=== PATIENT | female | born 1985 | race Two or more races ===

== ENCOUNTER 2022-03-09 22:13 | Inpatient (IN) ==
[2022-03-09 22:51] LABS: BILIRUBIN,URINE NEGATIVE (NEGATIVE); BLOOD/HEMOGLOBIN,URINE NEGATIVE (NEGATIVE); GLUCOSE, URINE NEGATIVE (NEGATIVE); KETONES,URINE NEGATIVE (NEGATIVE); LEUKOCYTE ESTERASE ,URINE NEGATIVE (NEGATIVE); NITRITES,URINE NEGATIVE (NEGATIVE); PROTEIN,URINE 2+ (NEGATIVE); UROBILINOGEN,URINE NORMAL (NORMAL)
[2022-03-09 22:52] VITALS: BMI 32.7
[2022-03-09 22:57] LABS: APPEARANCE,URINE CLEAR (CLEAR); BACTERIA,URINE NEGATIVE /HPF (NEGATIVE); COLOR,URINE PALE YELLOW (YELLOW); RBC,URINE NONE SEEN /HPF (0-3); SQUAMOUS EPITHELIAL CELL,UR RARE /HPF (NEGATIVE)
[2022-03-09 23:04] LABS: AMNISURE ROM TEST NO MEMBRANES RUPTURE (NO RUPTURE)
[2022-03-09] MEDS ORDERED: LR 1,000 ML IV 1,000 ML IV ONE ×2 (23:41→23:44)
[2022-03-10 00:04] LABS: HEMOGLOBIN 10.5 g/dL (12.0-16.0); MEAN CORPUSCULAR VOLUME 86.2 fL (80.0-100.0); WHITE BLOOD COUNT 5.3 X10^3/uL (3.6-10.0)
[2022-03-10 00:07] LABS: BASOPHILS # (AUTO) 0.1 X10^3/uL (0.0-0.1); BASOPHILS % (AUTO) 2.1 % (0.2-1.0); EOSINOPHILS % (AUTO) 0.9 % (0.9-2.9); HEMATOCRIT 29.5 % (36.0-47.0); LYMPHOCYTES # (AUTO) 1.9 X10^3/uL (1.3-2.9); LYMPHOCYTES % (AUTO) 35.7 % (21.0-51.0); MEAN CORPUSCULAR HEMOGLOBIN 30.7 pg (27.0-34.0); MEAN CORPUSCULAR HGB CONC 35.7 g/dL (33.0-35.0); MEAN PLATELET VOLUME 11.5 fL (7.4-11.0); MONOCYTES # (AUTO) 0.4 x10^3/uL (0.3-0.8); MONOCYTES % (AUTO) 7.5 % (0.0-13.0); NEUTROPHILS # (AUTO) 2.8 x10^3/uL (2.2-4.8); NEUTROPHILS % (AUTO) 53.8 % (42.0-75.0); RED BLOOD COUNT 3.43 X10^6/uL (3.5-5.4); RED CELL DISTRIBUTION WIDTH 12.6 % (11.6-16.5)
[2022-03-10 00:12] LABS: ALANINE AMINOTRANSFERASE 14 Units/L (12-78); ALBUMIN 2.4 g/dL (3.4-5.0); ALKALINE PHOSPHATASE 240 Units/L (46-116); ASPARTATE AMINO TRANSFERASE 17 Units/L (15-37); BLOOD UREA NITROGEN 9 mg/dL (7-18); CALCIUM 8.5 mg/dL (8.5-10.1); CARBON DIOXIDE 19.4 mmol/L (21-32); CHLORIDE 105 mmol/L (98-107); COR CA(FOR HYPOALB) 9.8 mg/dL (8.5-10.1); COR NA(FOR HYPERGLY) 140 mmol/L (136-145); CREATININE 0.72 mg/dL (0.55-1.02); SODIUM 138 mmol/L (136-145); TOTAL PROTEIN 6.4 g/dL (6.4-8.2); eGFR NON BLACK RACES > 60 (>60)
[2022-03-10] MEDS ORDERED: PITOCIN IVP ONE (01:04)
[2022-03-10] MEDS ORDERED: STADOL INJ IVP PRN (01:04)
[2022-03-10] MEDS ORDERED: REGLAN INJ 10 MG VIAL IVP PRN ×3 (01:04→10:22)
[2022-03-10] MEDS ORDERED: AMPICILLIN VIAL 2 GRAM 2 G in NS 100 ML IV + SPIKE MINIBAG* 100 ML IV SCH (01:04)
[2022-03-10] MEDS ORDERED: D5 LR + PITOCIN 10 UNITS/L 10 UNITS/1,000 ML BAG IV PRN (01:04)
[2022-03-10] MEDS ORDERED: PITOCIN ONE (01:46)
[2022-03-10] MEDS ORDERED: LR 1,000 ML IV 1,000 ML IV ONE ×2 (01:47→08:19)
[2022-03-10] MEDS ORDERED: BETADINE SOLN ONE (01:47)
[2022-03-10] MEDS ORDERED: D5 1/2 NS 1,000 mL + PITOCIN 20 UNITS/L IV 20 UNITS/1,000 ML BAG IV ONE (01:47)
[2022-03-10] MEDS ORDERED: AMPICILLIN VIAL 2 GRAM ONE (01:47)
[2022-03-10] MEDS ORDERED: NS 100 ML IV 100 ML ONE ×3 (01:48→08:19)
[2022-03-10] MEDS ORDERED: D5 1/2 NS 1,000 ML 1,000 ML IV SCH (02:00)
[2022-03-10] MEDS ORDERED: AMPICILLIN VIAL 1 GRAM ONE (05:00)
[2022-03-10] MEDS ORDERED: SPIKE MINIBAG IV SCH (06:00)
[2022-03-10] MEDS ORDERED: AMPICILLIN IV SCH (06:00)
[2022-03-10] MEDS ORDERED: NS IV SCH (06:00)
[2022-03-10] MEDS ORDERED: ANCEF VIAL 1 GRAM ONE (08:19)
[2022-03-10] MEDS ORDERED: XYLOCAINE 2 % (PLAIN) ONE (08:30)
[2022-03-10] MEDS ORDERED: DILAUDID INJ ONE (08:30)
[2022-03-10] MEDS ORDERED: MARCAINE SPINAL ONE (08:30)
[2022-03-10] MEDS ORDERED: PRECEDEX INJ VIAL IVP ONE (08:30)
[2022-03-10] MEDS ORDERED: ZOFRAN INJ 4 MG VIAL ONE (08:32)
[2022-03-10] MEDS ORDERED: PEPCID 20 MG VIAL ONE (08:34)
[2022-03-10] MEDS ORDERED: EPHEDRINE SULFATE INJ ONE (09:10)
[2022-03-10] MEDS ORDERED: ZOFRAN INJ 4 MG VIAL IVP PRN ×2 (09:44→10:22)
[2022-03-10] MEDS ORDERED: BARHEMSYS INJ IVP PRN (09:44)
[2022-03-10] MEDS ORDERED: DILAUDID INJ IVP PRN (09:44)
[2022-03-10] MEDS ORDERED: BENADRYL INJ 50 MG VIAL IVP PRN ×2 (09:44→10:22)
[2022-03-10] MEDS ORDERED: PHENERGAN INJ 25 MG IM PRN (09:44)
[2022-03-10] MEDS ORDERED: MORPHINE SULFATE INJ 4 MG IVP PRN (10:21)
[2022-03-10] MEDS ORDERED: PERCOCET TAB 5/325 MG PO PRN (10:21)
[2022-03-10] MEDS ORDERED: MOTRIN TAB 800 MG PO PRN (10:21)
[2022-03-10] MEDS ORDERED: NARCAN INJ IVP PRN ×2 (10:22)
[2022-03-10] MEDS: GLUCOPHAGE PO SCH ×2 (12:45→17:28)
[2022-03-10] MEDS: LR 1,000 ML IV 1,000 ML with PITOCIN 20 UNITS IV SCH ×2 (21:25)
[2022-03-11] MEDS: LR 1,000 ML IV 1,000 ML with PITOCIN 20 UNITS IV SCH ×6 (03:33→22:04)
[2022-03-11 05:00] LABS: HEMATOCRIT 24.5 % (36.0-47.0)
[2022-03-11 05:12] LABS: HEMOGLOBIN 8.8 g/dL (12.0-16.0)
[2022-03-11] MEDS: GLUCOPHAGE PO SCH ×2 (06:10→17:21)
[2022-03-11] MEDS ORDERED: NS 100 ML IV 100 ML with VENOFER 400 MG IV NR ×2 (08:54)
[2022-03-11] MEDS: LR 1,000 ML IV 1,000 ML IV SCH ×2 (13:10→16:43)
[2022-03-11] MEDS: PERCOCET TAB 5/325 MG PO PRN ×2 (14:30→21:42)
[2022-03-11] MEDS ORDERED: GLUCOPHAGE ONE (17:16)
[2022-03-11] MEDS: COLACE CAP 100 MG PO PRN (21:41)
[2022-03-12] MEDS: PERCOCET TAB 5/325 MG PO PRN (04:18)
[2022-03-12] MEDS ORDERED: MILK OF MAGNESIA PO PRN (04:32)
[2022-03-12] MEDS: COLACE CAP 100 MG PO PRN (06:10)
[2022-03-12] MEDS ORDERED: GLUCOPHAGE ONE ×2 (07:52→16:27)
[2022-03-12 08:44] LABS: BASOPHILS % (AUTO) 0.3 % (0.2-1.0); EOSINOPHILS # (AUTO) 0.1 x10^3/uL (0.0-0.2); EOSINOPHILS % (AUTO) 1.2 % (0.9-2.9); HEMATOCRIT 22.1 % (36.0-47.0); LYMPHOCYTES # (AUTO) 1.7 X10^3/uL (1.3-2.9); LYMPHOCYTES % (AUTO) 20.4 % (21.0-51.0); MEAN CORPUSCULAR HEMOGLOBIN 31.3 pg (27.0-34.0); MEAN PLATELET VOLUME 9.8 fL (7.4-11.0); MONOCYTES # (AUTO) 0.4 x10^3/uL (0.3-0.8); MONOCYTES % (AUTO) 5.3 % (0.0-13.0); NEUTROPHILS % (AUTO) 72.8 % (42.0-75.0); RED BLOOD COUNT 2.54 X10^6/uL (3.5-5.4); RED CELL DISTRIBUTION WIDTH 12.7 % (11.6-16.5); WHITE BLOOD COUNT 8.3 X10^3/uL (3.6-10.0)
[2022-03-12] MEDS: LR 1,000 ML IV 1,000 ML IV SCH ×2 (09:27→11:22)
[2022-03-12] MEDS: LR 1,000 ML IV 1,000 ML with PITOCIN 20 UNITS IV SCH ×4 (09:27→11:22)
[2022-03-12] MEDS: GLUCOPHAGE PO SCH ×2 (09:28→16:28)
[2022-03-13] MEDS ORDERED: GLUCOPHAGE ONE (08:31)
[2022-03-13] MEDS: GLUCOPHAGE PO SCH (08:58)
[2022-03-13 10:44] VITALS: BP 125/74
== END 2022-03-13 10:30 | disposition home or self-care (01) | DRG 788 ==
LOC: ER 22:20 → LD 03-10 01:04 → MED/SURG 03-10 10:18
PROVIDERS: ADMIT Obstetrics & Gynecology Obstetrics; ATTEND Obstetrics & Gynecology Obstetrics
DX: O40.3XX0 Polyhydramnios, third trimester, not applicable or unspecified; O24.410 Gestational diabetes mellitus in pregnancy, diet controlled; Z37.0 Single live birth; O64.1XX0 Obstructed labor due to breech presentation, not applicable or unspecified; Z3A.39 39 weeks gestation of pregnancy